=== PATIENT | male | born 1960 | race Caucasian/White ===

== ENCOUNTER 2018-07-28 07:04 | Inpatient (IN) | payer OTHER ==
[~2018-07-28] VITALS: Ht 170.2 cm; Wt 113.0 kg
[~2018-07-28 07:04] MED LIST: ARIP5TAB14 PO; CITA10TA10 PO; DIVA250T60 PO; FURO-109 PO; SPIR100T4 PO; TAMS0.4C2 PO
[2018-07-28] MEDS ORDERED: IPRATROPIUM (NEB) 0.5 MG/2.5 ML AMP INH STA ×2 (07:14→09:41)
[2018-07-28] MEDS ORDERED: FUROSEMIDE 40 MG INJ IV STA (07:14)
[2018-07-28] MEDS ORDERED: ALBUTEROL 0.5% (NEB) 2.5 MG/0.5 ML AMP INH STA ×2 (07:14→09:41)
[2018-07-28] MEDS ORDERED: METHYLPREDNISOLONE 125 MG INJ IV ONE (08:30)
[2018-07-28] MEDS ORDERED: LORAZEPAM 2 MG INJ IV ONE (09:30)
[2018-07-28] MEDS ORDERED: FUROSEMIDE 40 MG INJ IV ONE (09:30)
--- NOTE | 2018-07-28 09:53 | ERD ---
ER Documentation Chief Complaint Chief Complaint SOB hypoxic hx chf HPI This is a 57-year-old male who presents to the emergency department with severe difficulty breathing or shortness of breath that aggressively worsened over the past 24 hours. The patient states he has a history of COPD and congestive heart failure. He takes 40 mg of Lasix on a daily basis. He states he ran out of his nebulizer inhaler and therefore has been unable to utilize any bronchodilators since the onset of his symptoms. He indicates he is never been intubated in the past. He denies any fever shaking or chills. He states his symptoms are simil ar to his previous episodes of COPD. He is not on home oxygen. He said no recent hospitalizations. The patient quit tobacco May 21, 2018 ROS All systems reviewed and are negative except as per history of present illness. Medications Home Meds Reported Medications Divalproex Sodium* (Depakote*) 250 Mg Tablet.dr, 500 MG PO QHS, TAB 02/19/14 Tamsulosin Hcl* (Tamsulosin Hcl*) 0.4 Mg Cap.er.24h, 0.4 MG PO HS, CAP 02/19/14 Citalopram Hydrobromide* (Celexa*) 10 Mg Tablet, 35 MG PO DAILY, TAB 02/19/14 Aripiprazole* (Abilify*) 5 Mg Tab, 5 MG PO DAILY, TAB 02/19/14 Spironolactone* (Spironolactone*) 100 Mg Tablet, 100 MG PO DAILY, TAB 02/19/14 Furosemide* (Lasix*) 40 Mg Tablet, 40 MG PO DAILY, TAB 02/19/14 Allergies Allergies: Coded Allergies: No Known Drug Allergies (Verified Allergy, Mild, 02/19/14) PMhx/Soc History of Surgery: No Anesthesia Reaction: No Hx Neurological Disorder: No Hx Respiratory Disorders: Yes (COPD) Hx Cardiac Disorders: Yes (CHF) Hx Psychiatric Problems: No Hx Miscellaneous Medical Probl: Yes (HTN, Cholesterol) Hx Alcohol Use: No Hx Substance Use: Yes (marijuana) Hx Tobacco Use: No Smoking Status: Former smoker Physical Exam Vitals Vital Signs Date Temp Pulse Resp B/P (MAP) Pulse Ox O2 O2 Flow FiO2 Time Delivery Rate 07/28/18 74 26 182/111 98 Nasal 4.0 09:19 (134) Cannula 07/28/18 Simple 8 07:40 Mask 07/28/18 83 19 97 Nasal 2.0 07:37 Cannula 07/28/18 2.0 07:37 07/28/18 98.7 80 20 174/110 89 07:14 (131) Physical Exam Constitutional:Well-developed. Well-nourished. Patient severe respiratory distress HEENT:Normocephalic. Atraumatic.Pupils were equal round reactive to light. Moist mucous membranes.No tonsillar exudates. No JVD Neck: No nuchal rigidity. No lymphadenopathy. No posterior cervical spine ten derness or step-offs. Respiratory: Tachypneic. Unable to speak more than 2 or to time before becoming short of breath. Using accessory muscles of respiration. Decreased breath sounds heard bilaterally. Cardiovascular: Regular rate regular rhythm.No murmurs. No rubs were appreciated.S1, S2 normal. Distal pulses are palpable 1+ bilaterally. No pitting edema GI: Abdomen was soft. Nontender. Non Distended. No pulsatile abdominal masses or bruits. No rebound. No guarding. Bowel sounds were present and normal. Muscle skeletal: Full range of motion of both the upper and lower extremities bilaterally.Normal muscle tone.No assymetrical calf tenderness or swelling. Skin: No petechia, no purpura. No lesions on the palms or the soles of the feet. No maculopapular rash. NEURO: Patient was alert, awake, orientated x3.No facial droop. Gait not observed as patient was into much respiratory distress to ambulate. No focal neurological deficits. Result Diagram: 07/28/1872607/28/18726 Results 24 hrs Laboratory Tests Test 07/28/18 07:27 07/28/18 09:09 White Blood Count 8.2 10^3/ul Red Blood Count 4.78 10^6/ul Hemoglobin 14.0 g/dl Hematocrit 44.7 % Mean Corpuscular Volume 93.5 fl Mean Corpuscular Hemoglobin 29.3 pg Mean Corpuscular Hemoglobin Concent 31.3 g/dl Red Cell Distribution Width 14.5 % Platelet Count 148 10^3/UL Mean Platelet Volume 10.2 fl Immature Granulocytes % 0.200 % Neutrophils % 80.3 % Lymphocytes % 6.2 % Monocytes % 10.2 % Eosinophils % 2.7 % Basophils % 0.4 % Nucleated Red Blood Cells % 0.0 /100WBC Immature Granulocytes # 0.020 10^3/ul Neutrophils # 6.6 10^3/ul Lymphocytes # 0.5 10^3/ul Monocytes # 0.8 10^3/ul Eosinophils # 0.2 10^3/ul Basophils # 0.0 10^3/ul Nucleated Red Blood Cells # 0.0 10^3/ul Prothrombin Time 14.2 Sec Prothrombin Time Ratio 1.1 INR International Normalized Ratio 1.09 Activated Partial Thromboplast Time 30.3 Sec Sodium Level 140 mmol/L Potassium Level 4.6 mmol/L Chloride Level 102 mmol/L Carbon Dioxide Level 31 mmol/L Anion Gap 7 Blood Urea Nitrogen 21 mg/dl Creatinine 1.08 mg/dl Est Glomerular Filtrat Rate mL/min > 60 mL/min Glucose Level 123 mg/dl Lactic Acid Level 1.2 mmol/L 1.0 mmol/L Calcium Level 9.1 mg/dl Total Bilirubin 1.3 mg/dl Direct Bilirubin 0.00 mg/dl Indirect Bilirubin 1.3 mg/dl Aspartate Amino Transf (AST/SGOT) 32 IU/L Alanine Aminotransferase (ALT/SGPT) 27 IU/L Alkaline Phosphatase 93 IU/L Creatine Kinase 102 IU/L Creatine Kinase Index 5.1 Creatinine Kinase MB (Mass) 5.20 ng/ml Troponin I 0.012 ng/ml B-Type Natriuretic Peptide 1040 PG/ML Total Protein 7.5 g/dl Albumin 4.0 g/dl Globulin 3.50 g/dl Albumin/Globulin Ratio 1.14 Current Medications Medications Dose Sig/[place] Start Time Status Last (Trade) Ordered Route PRN Stop Time Admin Dose Reason Admin Albuterol 10 mg ONCE STAT 07/28/18 DC 07/28/18 (Proventil INH 07:14 07:35 0.5% (Neb)) 07/28/18 07:16 Ipratropium 1 mg ONCE STAT 07/28/18 DC 07/28/18 Thelma INH 07:14 07:35 (Atrovent 07/28/18 07:16 0.02% (Neb)) Furosemide 40 mg ONCE STAT 07/28/18 DC 07/28/18 (Lasix) IV 07:14 07:39 07/28/18 07:16 125 mg ONCE ONCE 07/28/18 DC 07/28/18 Methylprednis IV 08:30 08:39 olone Sodium 07/28/18 08:31 Succinate (Solu-Medrol) Lorazepam 1 mg ONCE ONCE 07/28/18 DC 07/28/18 (Ativan) IV 09: 09:26 07/28/18 09:31 Furosemide 40 mg ONCE ONCE 07/28/18 DC (Lasix) IV 09:30 07/28/18 09:31 Procedures/MDM The patient presented to the emergency department with dyspnea. My differential diagnosis included but was not limited to upper airway obstruction, CHF, pulmonary embolism, cardiac ischemia, pneumonia, pneumothorax, anemia, drug overdose, pulmonary edema, COPD or asthma. The patient was admitted placed on a monitor and storage bin tender continuous pulse oximetry and IV access was established by nursing staff. The patient was started on continuous nebulizer treatments of albuterol Atrovent. The patient had a physical exam findings that appeared to be a combination of congestive heart failure and COPD. The patient also received 125 mg of Solu-Medrol for suspected COPD exacerbation. IV Lasix and nebulizer treatments have been given for the congestive heart failure. Chest radiograph showed pulmonary vascular congestion. 12 Lead EKG tracing ordered and reviewed by myself showed: Normal sinus rhythm of 79 bpm and no arrhythmia. MN interval normal. QRS duration normal. No ST segment elevation No ST segment depression. No changes consistent with acute ischemia. T wave inversions in the lateral leads V4 V5 patient Patient's BNP was elevated at 1040. The patient was not septic. There did not appear to be an infectious process with antibiotics were not started. The patient symptoms have not improved. He was still experiencing severe difficulty breathing using accessory muscles of respiration however he now had bilateral rhonchi. He was placed on noninvasive mechanical ventilation to improve his symptoms. Arterial blood gas will be ordered and evaluated and necessary vent settings will be adjusted with respect to his changes in the arterial blood gas. He will require admission in serious condition to the telemetry service for severe respiratory distress. Will be admitted to the panel physician Critical Care: Time: 75 minutes Treatments/Evaluations: Close monitoring and treatment of unstable vital signs, cardiorespiratory, and neurologic status, while maintaining tight balance of fluid, respiratory, and cardiac interventions. Time does not include performing any of the above billable procedures. Departure Diagnosis: Primary Impression: COPD exacerbation Additional Impression: CHF (congestive heart failure) Heart failure type: unspecified Heart failure chronicity: acute on chronic Qualified Codes: I50.9 - Heart failure, unspecified Condition: Serious LOIS VELAZQUEZ MD Jul 28, 2018 09:53
[2018-07-28] MEDS ORDERED: ONDANSETRON 4 MG INJ IV PRN ×2 (10:00→13:30)
[2018-07-28] MEDS ORDERED: ACETAMINOPHEN 325 MG TAB PO PRN ×2 (10:00→13:30)
[2018-07-28] MEDS ORDERED: CHOL200056 PO (11:56)
[2018-07-28] MEDS ORDERED: CARV3.1260 PO (11:56)
[2018-07-28] MEDS ORDERED: HYDR25TA6 PO (11:58)
--- NOTE | 2018-07-28 13:29 | HP ---
Date/Time of Note Date/Time of Note DATE: 07/28/18 TIME: 13:21 Assessment/Plan VTE Prophylaxis Pharmacological prophylaxis: LMWH Lines/Catheters IV Catheter Type (from Nrsg): Saline Lock Assessment/Plan Hospital Course 1. Acute respiratory distress secondary to CHF exacerbation Chest x-ray shows pulmonary edema and BNP is elevated Currently on BiPAP, wean off as able Pulmonology consultation obtained Lasix 40 mg IV twice daily 2D echo 2. COPDstable Continue nebulizers 3. Morbid obesity with OHS ABG is consistent with OHS with hypercapnia and metabolic alkalosis Continue BiPAP Prophylaxis: Lovenox Result Diagram: 07/28/18 0707/28/18 0727 Results 24hrs Laboratory Tests Test 07/28/18 07:27 07/28/18 09:09 07/28/18 11:09 White Blood Count 8.2 # Red Blood Count 4.78 Hemoglobin 14.0 Hematocrit 44.7 Mean Corpuscular Volume 93.5 Mean Corpuscular Hemoglobin 29.3 Mean Corpuscular 31.3 L Hemoglobin Concent Red Cell Distribution Width 14.5 Platelet Count 148 Mean Platelet Volume 10.2 # Immature Granulocytes % 0.200 Neutrophils % 80.3 H Lymphocytes % 6.2 L Monocytes % 10.2 Eosinophils % 2.7 Basophils % 0.4 Nucleated Red Blood Cells % 0.0 Immature Granulocytes # 0.020 Neutrophils # 6.6 Lymphocytes # 0.5 L Monocytes # 0.8 Eosinophils # 0.2 Basophils # 0.0 Nucleated Red Blood Cells # 0.0 Prothrombin Time 14.2 Prothrombin Time Ratio 1.1 INR International 1.09 Normalized Ratio Activated 30.3 Partial Thromboplast Time Sodium Level 140 Potassium Level 4.6 Chloride Level 102 Carbon Dioxide Level 31 Anion Gap 7 Blood Urea Nitrogen 21 H Creatinine 1.08 Est Glomerular Filtrat > 60 Rate mL/min Glucose Level 123 Lactic Acid Level 1.2 1.0 Calcium Level 9.1 Total Bilirubin 1.3 Direct Bilirubin 0.00 Indirect Bilirubin 1.3 H Aspartate Amino 32 Transf (AST/SGOT) Alanine 27 Aminotransferase (ALT/SGPT) Alkaline Phosphatase 93 Creatine Kinase 102 Creatine Kinase Index 5.1 Creatinine Kinase MB (Mass) 5.20 H Troponin I 0.012 B-Type Natriuretic Peptide 1040 H Total Protein 7.5 Albumin 4.0 Globulin 3.50 H Albumin/Globulin Ratio 1.14 Blood Gas Specimen Source Blood arterial Arterial Blood Date Drawn 07/28/2018 11:20:31 AM Arterial Blood pH 7.377 (Temp corrected) Arterial Blood pCO2 53.3 H (Temp correct) Arterial Blood pO2 132.9 H (Temp corrected) Arterial Blood HCO3 30.6 H Arterial Blood Base Excess 4.0 H Arterial Blood 98.6 H Oxygen Saturation Rico Test ACCEPTAB Arterial Blood Gas Left Radial Puncture Site Arterial 0.7 Blood Carboxyhemoglobin Arterial Blood 0.4 Methemoglobin Blood Gas A-a O2 345.2 H Differential Oxyhemoglobin Percent 97.5 Blood Gas Temperature 37.0 Blood Gas Respiration Rate 18.0 Blood Gas Actual 20 Respiration Rate Blood Gas Modality MASK - BIPAP FiO2 75.0 Blood Gas Pressure Support 10 Blood Gas IPAP/EPAP Ratio 15/5 Blood Gas Notified Whom MDA Blood Gas Notified Time 07/28/2018 11:24:06 AM HPI/ROS Admit Date/Time Admit Date/Time July 28, 2018 Hx of Present Illness Patient is a 57-year-old male with history of morbid obesity, COPD, CHF on Lasix. Patient presents with shortness of breath, patient currently ran out of his nebulizer and hence has been unable to use any bronchodilators. Patient has no history of intubation, denies any fever or chills. Patient is not on home oxygen and quit smoking earlier this year. Patient is currently on BiPAP. ROS Constitutional: no complaints, improved Eyes: no complaints ENT: no complaints Respiratory: shortness of breath Cardiovascular: no complaints Gastrointestinal: no complaints Genitourinary: no complaints Musculoskeletal: no complaints Skin: no complaints Neurologic: no complaints Endocrine: no complaints Lymphatic: no complaints Psychological: no complaints, nl mood/affect Immunologic: no complaints PMH/Family/Social Past Medical History Obesity, CHF, COPD Medications Current Medications Ondansetron HCl (Zofran Inj) 4 mg ER BRIDGE PRN IV NAUSEA/VOMITING; Start 07/28/18 at 10:00; Stop 07/29/18 at 09:59 Acetaminophen (Tylenol Tab) 650 mg ER BRIDGE PRN PO .MILD PAIN 1-3 OR TEMP; Start 07/28/18 at 10:00; Stop 07/29/18 at 09:59 Coded Allergies: No Known Drug Allergies (Verified Allergy, Mild, 07/28/18) Family History Significant Family History: no pertinent family hx Social History Alcohol Use: occasionally Smoking Status: Former smoker Drug Use: none Exam/Review of Systems Vital Signs Vitals Vital Signs Date Temp Pulse Resp B/P (MAP) Pulse Ox O2 O2 Flow FiO2 Time Delivery Rate 07/28/18 84 24 150/84 97 BIPAP 12:00 (106) 07/28/18 35 11:00 07/28/18 4.0 09:19 07/28/18 98.7 07:14 Exam Constitutional: alert Respiratory: clear to auscultation Cardiovascular: regular rate and rhythm Gastrointestinal: soft; No distended Musculoskeletal: nl extremities to inspection DANIA BELL Jul 28, 2018 13:29
[2018-07-28] MEDS ORDERED: DOCUSATE SODIUM 100 MG CAP PO PRN (13:30)
[2018-07-28] MEDS ORDERED: morphine 2 MG INJ IV PRN (13:30)
[2018-07-28] MEDS ORDERED: NACL 0.9% 3 ML SYG IV SCH (13:30)
[2018-07-28] MEDS ORDERED: ZOLPIDEM 5 MG TAB PO PRN (13:30)
[2018-07-28] MEDS ORDERED: HYDROCODONE/APAP (5/325) TAB PO PRN (13:30)
[2018-07-28 15:20] VITALS: BP 201/103; PULSE 90; RESP 19
[2018-07-28 15:29] VITALS: Ht 170.2 cm; Wt 113.0 kg
[2018-07-28] MEDS: hydrALAzine 20 MG INJ IV PRN ×2 (16:07→21:32)
[2018-07-28] MEDS: FUROSEMIDE 40 MG INJ IV SCH (16:08)
[2018-07-28 16:24] VITALS: PULSE 83
[2018-07-28 20:00] VITALS: PULSE 99
[2018-07-28 21:29] VITALS: BP 195/82; PULSE 92; RESP 20
[2018-07-28] MEDS ORDERED: ZOLPIDEM 5 MG TAB PO ONE (22:20)
[2018-07-28 22:28] VITALS: BP 195/94; PULSE 95
[2018-07-29] VITALS (10 sets, daily range): BP systolic 126–182; BP diastolic 80–102; PULSE 83–137; RESP 18–20
[2018-07-29] MEDS: FUROSEMIDE 40 MG INJ IV SCH (05:32)
[2018-07-29] MEDS ORDERED: ENOXAPARIN 40 MG/0.4 ML SYG SC SCH (09:00)
[2018-07-29] MEDS ORDERED: HYDROCHLOROTHIAZIDE 25 MG TAB PO SCH (09:00)
[2018-07-29] MEDS: hydrALAzine 20 MG INJ IV PRN (11:38)
[2018-07-29] MEDS ORDERED: FURO-109 PO (14:10)
--- NOTE | 2018-07-29 14:11 | PDOCDIS ---
Discharge Instructions CONDITION [id number] Patient Condition: [id number] Good HOME CARE INSTRUCTIONS: [id number] Diet Instructions: [id number] Reduced Sodium ACTIVITY: [id number] Activity Restrictions: [id number] No Restrictions FOLLOW UP/APPOINTMENTS Follow-up Plan FOLLOW UP WITH YOUR PCP IN 1-2 WEEKS DANIA BELL Jul 29, 2018 14:11
--- NOTE | 2018-07-29 16:38 | DS ---
Date/Time of Note Date/Time of Note DATE: 07/29/18 TIME: 16:35 Discharge Summary Admission/Discharge Info Admit Date/Time Jul 28, 2018 at 09:59 Discharge Date/Time Jul 29, 2018 at 16:17 Discharge Diagnosis 1. Acute respiratory distress secondary to CHF exacerbation Patient weaned off of BiPAP Status post Lasix IV DC with Lasix p.o. 2. COPDstable Continue nebulizers 3. Morbid obesity with OHS ABG is consistent with OHS with hypercapnia and metabolic alkalosis Lifestyle changes Patient Condition: Good Hx of Present Illness Hospital Course Patient is a 57-year-old male with history of morbid obesity, COPD, CHF on Lasix. Patient presents with shortness of breath and was found to be in CHF exacerbation. Patient was diuresed with resolution of respiratory distress and patient was weaned off of BiPAP. Patient ABG was consistent with OHS, patient was discharged with Lasix p.o. On day of discharge patient's vitals, labs and exam are stable. Home Meds Active Scripts Furosemide* (Lasix*) 40 Mg Tablet, 40 MG PO DAILY, #60 TAB Prov:DANIA BELL 07/29/18 Reported Medications Hydrochlorothiazide* (Hydrochlorothiazide*) 25 Mg Tab, 25 MG PO DAILY, #30 TAB 07/28/18 Cholecalciferol (Vitamin D3) (Vitamin D-3) 2,000 Unit Tablet, 2000 UNIT PO DAILY, TAB 07/28/18 Carvedilol* (Carvedilol*) 3.125 Mg Tablet, 3.125 MG PO BID, #60 TAB 07/28/18 Discontinued Reported Medications Divalproex Sodium* (Depakote*) 250 Mg Tablet.dr, 500 MG PO QHS, TAB 02/19/14 Tamsulosin Hcl* (Tamsulosin Hcl*) 0.4 Mg Cap.er.24h, 0.4 MG PO HS, CAP 02/19/14 Citalopram Hydrobromide* (Celexa*) 10 Mg Tablet, 35 MG PO DAILY, TAB 02/19/14 Aripiprazole* (Abilify*) 5 Mg Tab, 5 MG PO DAILY, TAB 02/19/14 Spironolactone* (Spironolactone*) 100 Mg Tablet, 100 MG PO DAILY, TAB 02/19/14 Furosemide* (Lasix*) 40 Mg Tablet, 40 MG PO DAILY, TAB 02/19/14 Follow-up Plan FOLLOW UP WITH YOUR PCP IN 1-2 WEEKS Primary Care Provider Harsh Bello MD Time spent on discharge: > 30 minutes DANIA BELL Jul 29, 2018 16:38
== END 2018-07-29 16:17 | disposition home or self-care (01) | DRG 191 ==
LOC: E/R 07:04 → 6WM 09:59 → UNDODISIN 07-29 14:30
PROVIDERS: ADMIT Internal Medicine; ATTEND Internal Medicine
DX: J44.1 Chronic obstructive pulmonary disease with (acute) exacerbation (principal); E66.2 Morbid (severe) obesity with alveolar hypoventilation; E87.3 Alkalosis; E66.01 Morbid (severe) obesity due to excess calories; Z68.39 Body mass index [BMI] 39.0-39.9, adult; R06.03 Acute respiratory distress; R06.89 Other abnormalities of breathing; Z87.891 Personal history of nicotine dependence
CPT/HCPCS: 36415; 36600; 71045; 80048; 80053; 80061; 82550; 82553; 82803; 83036; 83605; 83735; 83880; 84100; 84484; 85025; 85610; 85730; 90686; 93005; 94644; 94645; 94660; 96374; 96375; J0360; J1650; J1940; J2060; J2930